=== PATIENT | female | born 1995 | race Caucasian/White ===

== ENCOUNTER → 2017-07-05 | Outpatient (CLI) | payer OTHER ==
--- NOTE | 2017-07-05 08:20 | US ---
EXAMINATION TYPE: US abdomen complete DATE OF EXAM: 07/05/2017 COMPARISON: NONE CLINICAL HISTORY: K83.9 disease of biliary tract, RUQ pain. EXAM MEASUREMENTS: Liver Length: 16.2 cm Gallbladder Wall: 0.2 cm CBD: 0.3 cm Spleen: 10.9 cm Right Kidney: 11.2 x 4.3 x 5.1 cm Left Kidney: 11.4 x 4.7 x 4.9 cm Patient of large body habitus, some limitations. Pancreas: Tail obscured by overlying bowel gas Liver: Unremarkable. Gallbladder: large stone seen within Evidence for sonographic Peña's sign: no CBD: wnl Spleen: wnl Right Kidney: Inferior pole obscured by bowel gas Left Kidney: wnl Upper IVC: wnl Abd Aorta: Bifurcation obscured by overlying bowel gas The liver is homogenous. The intrahepatic portion of the IVC and proximal abdominal aorta are within normal limits. Common bile duct is unremarkable. The visualized portions of the pancreas are jaren ogenous. The spleen is unremarkable. Kidneys are symmetric and free of hydronephrosis. No renal le sions are seen. IMPRESSION: Cholelithiasis without sonographic evidence of acute cholecystitis.
== END | disposition home or self-care (01) ==
LOC: RADUSWWP 07:32
PROVIDERS: ATTEND Internal Medicine
DX: K80.20 Calculus of gallbladder without cholecystitis without obstruction (principal)
CPT/HCPCS: 76700

== ENCOUNTER → 2017-07-12 | Outpatient (CLI) | payer OTHER ==
--- NOTE | 2017-07-12 11:41 | NM ---
EXAMINATION TYPE: NM hepatobiliary w EF DATE OF EXAM: 07/12/2017 COMPARISON: Ultrasound 07/05/2017 HISTORY: 22-year-old female pain, gallstones. TECHNIQUE: After the intravenous administration of 5.6 mCi Tc 99m Mebrofenin hepatobiliary scintigrap hy is performed. Immediate images post injection. FINDINGS: There is satisfactory initial accumulation of tracer by the liver. The gallbladder is visualized wit hin 10 minutes. The small bowel activity is noted after 60 minutes following Ensure ingestion. At on e hour 8 ounces of oral ensure plus is given to mimic CCK and gallbladder ejection fraction is calcul ated at 96 %, limited beyond the expected range (35-80%). IMPRESSION: 1. No scintigraphic evidence for acute/chronic cholecystitis or biliary dyskinesia. 2. However, an elevated gallbladder ejection fraction can be seen in the setting of gallbladder hyper kinesis.
== END | disposition home or self-care (01) ==
LOC: RADNMMAIN 06:50
PROVIDERS: ATTEND Internal Medicine
DX: K80.20 Calculus of gallbladder without cholecystitis without obstruction (principal)
CPT/HCPCS: 78226; A9537